=== PATIENT | male | born 1960 | race Two or more races ===

== ENCOUNTER 2024-04-12 18:30 | Emergency (ER) | payer MEDICAID, OTHER ==
[~2024-04-12] VITALS: Ht 177.8 cm; Wt 69.0 kg
[2024-04-12 18:33] VITALS: O2SAT 99
[2024-04-12 22:47] VITALS: BP 128/85; PULSE 85; RESP 16; TEMP 98.5
[2024-04-12] MEDS: SODIUM CHLORIDE 0.9% 1,000 ML IV ONE (22:49)
== END 2024-04-13 05:16 | disposition home or self-care (01) ==
LOC: ER 18:30
DX: S00.81XA Abrasion of other part of head, initial encounter (principal); F10.129 Alcohol abuse with intoxication, unspecified; R51.9 Headache, unspecified; X58.XXXA Exposure to other specified factors, initial encounter; Y93.89 Activity, other specified; Y92.89 Other specified places as the place of occurrence of the external cause; Y99.8 Other external cause status; Y90.9 Presence of alcohol in blood, level not specified
CPT/HCPCS: 99284; 70450; J7030